=== PATIENT | male | born 1980 | race Caucasian/White ===

== ENCOUNTER 2017-02-14 11:36 | Emergency (ER) | payer OTHER ==
[2017-02-14] MEDS ORDERED: NS 0.9% 1000 ML* 1,000 ML IV ONE (13:25)
--- NOTE | 2017-02-14 13:50 | RAD ---
INDICATION: Abdominal pain in a patient that reports "swallowing and glove" COMPARISON: None TECHNIQUE: Supine and upright views of the abdomen were obtained. FINDINGS: The small bowel and colon appear nondistended. No free intraperitoneal air is seen. No grossly abnormal or pathologic appearing calcifications are noted. Visualized bones are within normal limits for the patient's age. IMPRESSION: Normal abdominal radiograph.
[2017-02-14 13:55] LABS: Hematocrit 48 % (42-52); Hemoglobin 16.3 g/dl (14.0-18.0); Mean Corpuscular HGB Conc 34 g/dl (31-36); Mean Corpuscular Hemoglobin 30 pg (27-31); Mean Corpuscular Volume 88 fL (80-94); Mean Platelet Volume 8 um3 (7.4-10.4); Red Blood Count 5.44 10^6/ul (4.0-5.4); Red Cell Distribution Width 14 % (10.5-15); White Blood Count 10.7 10^3/ul (3.5-10.8)
[2017-02-14 14:13] LABS: Albumin 4.4 g/dL (3.2-5.2); BUN/Creatinine Ratio 20.3 (8-20); C Reactive Protein 7.99 mg/L (< 5.00); Calcium 9.5 mg/dL (8.6-10.3); EGFR African American 165.9 (>60); Globulin 3.3 g/dL (2-4); Potassium 3.8 mmol/L (3.5-5.0); Total Bilirubin 0.4 mg/dL (0.2-1.0); Total Protein 7.7 g/dL (6.4-8.9)
[2017-02-14 14:44] VITALS: BP 135/77
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
== END 2017-02-14 15:44 ==
LOC: ED 11:36
DX: R10.10 Upper abdominal pain, unspecified (principal); I10 Essential (primary) hypertension; F31.9 Bipolar disorder, unspecified; F17.210 Nicotine dependence, cigarettes, uncomplicated
CPT/HCPCS: 36415; 74020; 80053; 82270; 83605; 83690; 85025; 85610; 85730; 86140; 86850; 86900; 86901; 96360; 99282

== ENCOUNTER 2017-02-23 10:55 | Day surgery (SDC) | payer OTHER ==
--- NOTE | 2017-02-20 21:51 | HP ---
CC: Bruno Sparrow MD * ADMISSION HISTORY AND PHYSICAL: DATE OF ADMISSION: 02/23/17 ATTENDING SURGEON: Jordan Gardner MD * (CHERYL Nicole dictating). CHIEF COMPLAINT: Foreign body in the stomach. HISTORY OF PRESENT ILLNESS: This is a 36-year-old male with history of heroin abuse who is on chronic Suboxone therapy. He states that 10 to 12 years ago, he swallowed a glove and that it has remained in his stomach since then. He states that for the first few years he had no symptoms, but then beginning about 5 years ago, he began to have intermittent abdominal pain with the pain primarily in the epigastric region described as sharp and colicky with associated nausea, but only one episode of vomiting that being recently. He states the pain can last from hours to days and is relieved only by drinking milk. He has had no lower GI symptoms, specifically melena or bright red blood per rectum. On 05/04/16, he was seen in [facility] in [place] and underwent a CT scan with IV contrast which did describe the appearance of a foreign body in the stomach and also what appeared to be a tiny gallstone. A subsequent EGD that same date was performed with findings again consistent with a foreign body within the stomach. It was unable to be removed with a scope. There were some areas of inflammation with recommended followup EGD once the foreign body was removed. On some of his other chart notes, it was mentioned that he had swallowed other items, though he did not admit to that today. He was seen in the office by Dr. Gardner on 12/09/16, his history was reviewed and he was examined. At that time, the reports on the CT and the endoscopy were not available. In the meantime, the patient did present to the ED on 02/14/17 with acute abdominal pain. A plain film of the abdomen was normal at that time and then the patient left the emergency department because he was told it would be quite sometime before he could be seen by one of the surgical staff. The patient understands the plan, the indications, risks, benefits, and alternative of the surgery and would like to proceed as scheduled with laparoscopic removal of gastric foreign body. PAST MEDICAL HISTORY: Drug abuse (heroin), chronic hepatitis C (negative viral load per chart record), chronic pain and chronic opioid dependence. PAST SURGICAL HISTORY: ORIF of a right cuboid fracture in 2013, open appendectomy remotely, endoscopic removal of colorectal polyps as a child. CURRENT MEDICATIONS: 1. Suboxone 12-3 film tab once daily. 2. Gabapentin 600 mg 4 times a day (I have a call in to Dr. Sparrow regarding his Suboxone and postoperative pain management). DRUG ALLERGIES: None. FAMILY HISTORY: Negative for anesthesia problems, bleeding or clotting disorders. SOCIAL HISTORY: The patient lives alone. He is employed as a cook at a local diner. He is a smoker of 1 pack per day for the past 15 years. He drinks alcohol on occasion (1 to 2 drinks). He states that he has smoked marijuana within the past week or so, but otherwise has not used any other substances for at least a month. REVIEW OF SYSTEMS: General: No recent constitutional symptoms or acute illnesses other than described in the HPI. Cardiovascular: No chest pain, palpitations, history of heart murmur. Respiratory: No history of asthma, chronic cough or shortness of breath. GI: As above per HPI. He has never had a colonoscopy. : No problems reported. Endocrine: No diabetes or thyroid dysfunction. PHYSICAL EXAMINATION GENERAL: Well-nourished, well-developed male, in no acute distress. VITAL SIGNS: Height 5 feet 10 inches, weight 225 pounds. Blood pressure 144/76 , pulse 78, respirations 18. HEENT: Pupils equal, round, and reactive. EOMs intact. No conjunctival pallor. Oropharynx: Teeth in good repair. No intraoral lesions. NECK: No lymphadenopathy or thyromegaly. LUNGS: Clear to auscultation. No rales or wheezes. HEART: Regular rate and rhythm. No murmur. ABDOMEN: Well-healed right lower quadrant scar from prior appendectomy. Soft. Mild tenderness to palpation just of the midline at the level of the umbilicus. No palpable masses or organomegaly. GENITALIA: Not done. RECTAL: Not done. BACK: No spinous process or CVA tenderness. EXTREMITIES: No edema. NEUROLOGIC: Grossly intact. SKIN: Warm and dry. No suspicious rashes or lesions. IMPRESSION: Gastric foreign body. PLAN: Laparoscopic removal gastric foreign body. CHERYL NICOLE [id number]/[facility] #: [id number] [facility]ERYEr[facility]
[~2017-02-23 10:55] MED LIST: Buffered Lidocaine 0.9% SYRIN* 5 ML/SYR SYRINGE INTRADERM ONE; Famotidine IV* 10 MG/ML 2 ML (20 mg) IV ONE; Morphine INJ* 2 MG/ML 1 ML CARPUJECT IV PRN; PROCHLORPERAZINE INJ 5 MG/ML 2 ML VIAL IV PRN; Scopolamine 1.5 mg* PATCH TRANSDERM PRN
[2017-02-23] MEDS ORDERED: ceFAZolin 2 GM PREMIX (*) 50 ML IVPB ONE (11:01)
[2017-02-23] MEDS ORDERED: Famotidine IV* 10 MG/ML 2 ML (20 mg) ONE (11:01)
[2017-02-23] MEDS ORDERED: Buffered Lidocaine 0.9% SYRIN* 5 ML/SYR SYRINGE ONE (11:01)
[2017-02-23] MEDS ORDERED: KETAMINE HCL* 50 MG/ML 10 ML VIAL ONE (12:44)
[2017-02-23] MEDS ORDERED: fentaNYL* 50 MCG/ML 5 ML VIAL (250 MCG VIAL) ONE (12:45)
[2017-02-23] MEDS ORDERED: Midazolam* 1 MG/ML 5 ML VIAL (5 MG) ONE (12:45)
[2017-02-23] MEDS ORDERED: Bupivacaine 0.25% SDV* 30 ML ONE (13:36)
[2017-02-23] MEDS ORDERED: Neostigmine Methylsulfate* 2 MG/2 ML SYRINGE ONE (14:59)
[2017-02-23] MEDS ORDERED: Glycopyrrolate IV* 0.2 MG/ML 1 ML VIAL ONE ×2 (14:59→15:41)
--- NOTE | 2017-02-23 15:01 | PN ---
Progress Note - Progress Note Date of Service: 02/23/17 Note: Brief Operative Note: Preop Dx: gastric foreign body Postop Dx: same Procedure: Laparoscopic removal of gastric f.b. Anesthesia: GET Surgeon: Jj Asst: Olga Pringle NP Fluids: 1400 ml RL Drains:none Specimen: foreign body; portion of stomach Findings: dictated
[2017-02-23] MEDS ORDERED: Labetalol IV* 5 MG/ML 20 ML VIAL ONE (15:13)
[2017-02-23] MEDS ORDERED: hydrALAZINE IV* 20 MG/ML VIAL ONE (15:13)
[2017-02-23] MEDS ORDERED: Morphine INJ* 10 MG/ML 1 ML CARPUJECT ONE (15:14)
[2017-02-23] MEDS ORDERED: Levofloxacin 500 MG IVPREMIX(* 500 MG/100 ML BAG IVPB ONE ×2 (15:23→15:28)
[2017-02-23] MEDS ORDERED: Clindamycin 900 MG IVPREMIX(* 900 MG/50 ML SDV IV ONE ×2 (15:24→15:28)
[2017-02-23] MEDS ORDERED: oxyCODONE/Acetamin 5/325 MG* TAB ONE (15:41)
[2017-02-23] MEDS: oxyCODONE/Acetamin 5/325 MG* TAB PO PRN ×2 (15:43→15:47)
[2017-02-23] MEDS ORDERED: fentaNYL* 50 MCG/ML 2 ML VIAL (100 MCG VIAL) ONE (15:45)
[2017-02-23] MEDS: fentaNYL* 50 MCG/ML 2 ML VIAL (100 MCG VIAL) IV PRN ×3 (15:46→16:00)
[2017-02-23 16:20] VITALS: BP 133/86
--- NOTE | 2017-02-24 00:45 | OP ---
CC: Bruno Sparrow MD * DATE OF OPERATION: 02/23/17 - [facility] DATE OF : 78 SURGEON: Jordan Gardner MD ASSISTANTS: Dakota Rebolledo MD; Esmer Pringle NP. ANESTHESIOLOGIST: Dr. Sanchez. ANESTHESIA: General anesthetic, local infiltration. PRE-OP DIAGNOSIS: Intragastric foreign body. POST-OP DIAGNOSIS: Intragastric foreign body. OPERATIVE PROCEDURE: Laparoscopic retrieval of gastric foreign body. DESCRIPTION OF PROCEDURE: The patient was supine on the operating room table. After adequate general anesthetic, compression stockings, Lynda Hugger warmer, and intravenous antibiotics, he was placed in the split leg table, appropriately padded and positioned and secured to the table. Abdomen was clipped and prepped with antiseptic, draped in a sterile fashion. Local infiltrative anesthesia was administered. Umbilical incision was carried out and 12-mm cannula was placed and additional cannulae 5 mm subxiphoid and left subcostal and left anterior axillary line were placed with small stab wounds under direct vision. The stomach was palpated and it felt like there was a foreign body in the upper portion of the stomach. Stay sutures of 0 Ethibond were utilized to tent up the stomach and a gastrotomy was created of approximately 5 cm in size. Intragastric foreign body was identified. This was placed in a large retrieval bag. Suctioning was carried out to capture and avoid spillage and there was very minimal spillage in this process. The retrieval bag was sealed and the gastrotomy was closed using Endo FELICIANO stapler with the purple cartridge with reenforcing strips, this created an excellent closure. The operative field was irrigated and free fluid was suctioned out. The little staple line piece of stomach was placed in a small retrieval bag and brought out through the umbilical site. The umbilical site needed to be enlarged to remove the large foreign body. The umbilical incision had been enlarged to about 4 cm. It was closed with interrupted [id number] sutures of 0 Vicryl. Skin in all places was closed with 5-0 Vicryl followed by Steri- Strips. He tolerated the procedure well, was awakened and extubated and brought to Recovery in good condition. No complications. No drains. Pathologic specimens as above. Sponge and instrument counts correct. Estimated blood loss is 30 mL. [id number]/[facility] #: [id number] LILLY
[2017-02-26] MEDS ORDERED: Scopolomine PATCH Remove* 1 NOTE MISC PATCH OFF ONE (06:55)
== END 2017-02-23 16:54 | disposition home or self-care (01) ==
LOC: OR 10:55
PROVIDERS: ATTEND Surgery
DX: T18.2XXA Foreign body in stomach, initial encounter (principal); Y92.9 Unspecified place or not applicable; F11.11 Opioid abuse, in remission; F17.210 Nicotine dependence, cigarettes, uncomplicated
CPT/HCPCS: 88300; 88307; A9270-GY; J0360; J0690; J1956; J2250; J2270; J3010